=== PATIENT | female | born 1955 | race Caucasian/White ===

== ENCOUNTER → 2016-04-23 | Outpatient (CLI) | payer OTHER | END | disposition home or self-care (01) | LOC: RES 04-18 09:00 | DX: R06.00 Dyspnea, unspecified (principal) | CPT/HCPCS: 94060; 94726; 94729 ==

== ENCOUNTER 2016-08-03 07:16 | Emergency (ER) | payer OTHER ==
[~2016-08-03] VITALS: Ht 165.1 cm; Wt 63.0 kg
[2016-08-03 10:49] VITALS: BP 147/75
== END 2016-08-03 10:51 | disposition home or self-care (01) ==
LOC: EME 07:16
DX: H53.451 Other localized visual field defect, right eye (principal); Z90.710 Acquired absence of both cervix and uterus; Z80.0 Family history of malignant neoplasm of digestive organs
CPT/HCPCS: 70450; 99281; 99283